=== PATIENT | female | born 1960 | race Caucasian/White ===

== ENCOUNTER 2017-02-06 15:10 | Outpatient (CLI) | payer MEDICARE ==
--- NOTE | 2017-02-06 22:03 | RAD ---
RIGHT HIP TWO VIEWS 02/06/17 No fracture, dislocation, or joint space narrowing was seen. The articular surface of the femoral he ad is smooth. There is a little bit of periosteal reaction in the proximal femoral shaft laterally, just below the trochanters. Its appearance is nonspecific and might even be age related. It appears more likely benign than not. If pain persisted or further workup was deemed necessary, then an MRI o f the area could be useful. Mi suspicion of significant disease here is currently low. IMPRESSION: 1. Unremarkable hip joint. 2. Minor linear periosteal reaction of the proximal femoral shaft thought to be more likely low in importance than not. POS: HOME
== END 2017-02-06 15:11 | disposition home or self-care (01) ==
LOC: BURRAD 15:10
PROVIDERS: ATTEND Nurse Practitioner Family
DX: M25.551 Pain in right hip (principal)